=== PATIENT | male | born 1940 | race Caucasian/White ===

== ENCOUNTER 2024-10-15 07:10 | Observation (INO) | payer MEDICARE, BC ==
[2024-10-15] MEDS: Acetaminophen 500 MG Tab PO ONE (08:54)
[2024-10-15] MEDS: tiZANidine 4 MG Tab PO STA (08:54)
[2024-10-15] MEDS: Morphine 4 MG/ML VIAL IVPUSH ONE ×2 (10:32→16:13)
[2024-10-15] MEDS: Ondansetron 4 MG/2 ML SDV IVPUSH ONE ×3 (10:32→16:13)
[2024-10-15] MEDS: Sodium Chloride 0.9% 1,000 ML IV SCH ×3 (10:54→21:38)
[2024-10-15 14:27] LABS: BLOOD UREA NITROGEN,BUN 18 mg/dL (7-18); CALCIUM 8.8 mg/dL (8.6-10.2); CARBON DIOXIDE,CO2 25 mmol/L (21-32); CHLORIDE,CL 105 mmol/L (100-110); CREATININE 1.2 mg/dL (0.70-1.30); EST CRCL DRUG DOSING (CG) 51.79 mL/min; ESTIMATED GFR 60 mL/min (>60); GLUCOSE RANDOM 138 mg/dL (80-116); SODIUM,NA 143 mmol/L (135-145)
[2024-10-15 14:28] LABS: INR 0.97 (1.00-1.24); PROTHROMBIN TIME 10.1 sec (9.0-11.1)
[2024-10-15 14:30] LABS: BASOPHILS PERCENT AUTO 0.6 % (0.3-3.8); EOSINOPHILS ABSOLUTE AUTO 0.2 x10-3/uL (0.0-0.6); HEMATOCRIT 46.6 % (38.3-50.1); HEMOGLOBIN 15.7 g/dL (12.9-17.7); LYMPHOCYTES ABSOLUTE AUTO 2.6 x10-3/uL (0.5-4.5); LYMPHOCYTES PERCENT AUTO 43.5 % (15.8-45.3); MEAN CORPUSCULAR HEMOGLOBIN 30.3 pg (27.0-33.3); MEAN CORPUSCULAR HGB CONC 33.7 g/dL (28.7-35.3); MEAN PLATELET VOLUME 9.8 fL (6.7-11.0); MONOCYTES ABSOLUTE AUTO 0.5 x10-3/uL (0.0-1.2); MONOCYTES PERCENT AUTO 7.8 % (5.5-15.2); NEUTROPHILS ABSOLUTE AUTO 2.6 x10-3/uL (1.7-6.9); NEUTROPHILS PERCENT AUTO 45.1 % (40.3-71.8); PLATELET COUNT,PLT 146 x10(3)uL (117-477); RED BLOOD CELL COUNT 5.18 x10(6)uL (3.90-5.90); RED CELL DISTRIBUTION WIDTH 13.8 % (12.4-15.0); WHITE BLOOD CELL COUNT,WBC 5.9 x10-3/uL (3.2-10.1)
[2024-10-15 14:33] LABS: A/G RATIO 1.2; ALANINE AMINOTRANSFERASE,ALT 31 U/L (12-36); ALBUMIN 3.7 g/dL (3.2-4.6); ALKALINE PHOSPHATASE 86 IU/L (56-112); ASPARTATE AMNIOTRANSFERASE,AST 27 IU/L (5-25); BILIRUBIN TOTAL 0.8 mg/dL (0.1-1.3); PROTEIN TOTAL,TP 6.7 g/dL (6.0-8.0)
[2024-10-15] MEDS: Iopamidol 755 Mg/ML 100 ML Bottle IV SCH (15:16)
[2024-10-15] MEDS: levETIRAcetam 500 MG Tab PO STA (17:56)
[2024-10-15] MEDS: Acetaminophen/HYDROcodone 325-10 MG Tab PO PRN (21:16)
[2024-10-15] MEDS: levETIRAcetam 500 MG Tab PO SCH (21:16)
[2024-10-15] MEDS: Melatonin 3 MG Tab PO SCH (21:16)
[2024-10-15] MEDS: Sodium Chloride 0.9% 2,000 ML IV ONE (22:11)
[2024-10-15 22:37] LABS: BILIRUBIN,URINE NEGATIVE (NEGATIVE); GLUCOSE,URINE NORMAL (NORMAL); KETONES,URINE NEGATIVE (NEGATIVE); LEUKOCYTE ESTERASE,URINE NEGATIVE (NEGATIVE); NITRITE,URINE NEGATIVE (NEGATIVE); OCCULT BLOOD,URINE NEGATIVE (NEGATIVE); PROTEIN,URINE NEGATIVE (NEGATIVE); UROBILINOGEN,URINE NORMAL (NEGATIVE)
[2024-10-15 23:03] LABS: APPEARANCE,URINE CLEAR (CLEAR); COLOR,URINE YELLOW (YELLOW)
[2024-10-16] MEDS: Sodium Chloride 0.9% 1,000 ML IV SCH ×2 (01:50→14:50)
[2024-10-16] MEDS: tiZANidine 4 MG Tab PO PRN (05:29)
[2024-10-16 06:26] LABS: BASOPHILS PERCENT AUTO 0.3 % (0.3-3.8); EOSINOPHILS ABSOLUTE AUTO 0.1 x10-3/uL (0.0-0.6); EOSINOPHILS PERCENT AUTO 1.3 % (0.1-6.8); HEMATOCRIT 38.6 % (38.3-50.1); HEMOGLOBIN 12.7 g/dL (12.9-17.7); LYMPHOCYTES ABSOLUTE AUTO 1.1 x10-3/uL (0.5-4.5); LYMPHOCYTES PERCENT AUTO 16.6 % (15.8-45.3); MEAN CORPUSCULAR VOLUME 90.9 fL (80.8-98.7); MEAN PLATELET VOLUME 8.7 fL (6.7-11.0); MONOCYTES ABSOLUTE AUTO 0.7 x10-3/uL (0.0-1.2); MONOCYTES PERCENT AUTO 11.2 % (5.5-15.2); NEUTROPHILS ABSOLUTE AUTO 4.5 x10-3/uL (1.7-6.9); NEUTROPHILS PERCENT AUTO 70.6 % (40.3-71.8); PLATELET COUNT,PLT 113 x10(3)uL (117-477); RED BLOOD CELL COUNT 4.24 x10(6)uL (3.90-5.90); RED CELL DISTRIBUTION WIDTH 14.1 % (12.4-15.0); WHITE BLOOD CELL COUNT,WBC 6.3 x10-3/uL (3.2-10.1)
[2024-10-16 06:35] LABS: A/G RATIO 1.2; ALANINE AMINOTRANSFERASE,ALT 24 U/L (12-36); ALBUMIN 2.9 g/dL (3.2-4.6); ALKALINE PHOSPHATASE 58 IU/L (56-112); ASPARTATE AMNIOTRANSFERASE,AST 21 IU/L (5-25); BILIRUBIN TOTAL 0.9 mg/dL (0.1-1.3); BLOOD UREA NITROGEN,BUN 16 mg/dL (7-18); BUN/CREATININE RATIO 13.3 (9-20); CALCIUM 7.6 mg/dL (8.6-10.2); CARBON DIOXIDE,CO2 27 mmol/L (21-32); CHLORIDE,CL 110 mmol/L (100-110); CREATININE 1.2 mg/dL (0.70-1.30); EST CRCL DRUG DOSING (CG) 51.79 mL/min; ESTIMATED GFR 60 mL/min (>60); GLUCOSE RANDOM 104 mg/dL (80-116); POTASSIUM,K 4.5 mmol/L (3.5-5.3); PROTEIN TOTAL,TP 5.4 g/dL (6.0-8.0); SODIUM,NA 143 mmol/L (135-145)
[2024-10-16] MEDS: Ondansetron 4 MG Tab.DIS PO PRN ×2 (09:47→14:58)
[2024-10-16] MEDS ORDERED: Acetaminophen 325 MG Supp RECTAL PRN (10:01)
[2024-10-16] MEDS: Acetaminophen 325 MG Tab PO PRN (14:52)
[2024-10-17 06:21] LABS: BASOPHILS PERCENT AUTO 0.4 % (0.3-3.8); EOSINOPHILS ABSOLUTE AUTO 0.1 x10-3/uL (0.0-0.6); EOSINOPHILS PERCENT AUTO 2.2 % (0.1-6.8); HEMOGLOBIN 12.6 g/dL (12.9-17.7); LYMPHOCYTES ABSOLUTE AUTO 1.5 x10-3/uL (0.5-4.5); LYMPHOCYTES PERCENT AUTO 25.5 % (15.8-45.3); MEAN CORPUSCULAR HEMOGLOBIN 29.9 pg (27.0-33.3); MEAN CORPUSCULAR HGB CONC 33.1 g/dL (28.7-35.3); MEAN CORPUSCULAR VOLUME 90.5 fL (80.8-98.7); MEAN PLATELET VOLUME 8.7 fL (6.7-11.0); MONOCYTES ABSOLUTE AUTO 0.7 x10-3/uL (0.0-1.2); MONOCYTES PERCENT AUTO 11.2 % (5.5-15.2); NEUTROPHILS ABSOLUTE AUTO 3.6 x10-3/uL (1.7-6.9); NEUTROPHILS PERCENT AUTO 60.7 % (40.3-71.8); PLATELET COUNT,PLT 116 x10(3)uL (117-477); RED BLOOD CELL COUNT 4.19 x10(6)uL (3.90-5.90); RED CELL DISTRIBUTION WIDTH 13.8 % (12.4-15.0)
[2024-10-17 06:36] LABS: ALANINE AMINOTRANSFERASE,ALT 22 U/L (12-36); ALBUMIN 2.7 g/dL (3.2-4.6); ALKALINE PHOSPHATASE 61 IU/L (56-112); ASPARTATE AMNIOTRANSFERASE,AST 18 IU/L (5-25); BILIRUBIN TOTAL 0.6 mg/dL (0.1-1.3); BLOOD UREA NITROGEN,BUN 14 mg/dL (7-18); BUN/CREATININE RATIO 12.7 (9-20); CALCIUM 7.7 mg/dL (8.6-10.2); CARBON DIOXIDE,CO2 28 mmol/L (21-32); CHLORIDE,CL 108 mmol/L (100-110); CREATININE 1.1 mg/dL (0.70-1.30); EST CRCL DRUG DOSING (CG) 56.49 mL/min; ESTIMATED GFR 66 mL/min (>60); GLUCOSE RANDOM 116 mg/dL (80-116); POTASSIUM,K 4.2 mmol/L (3.5-5.3); PROTEIN TOTAL,TP 5.3 g/dL (6.0-8.0); SODIUM,NA 141 mmol/L (135-145)
[2024-10-17] MEDS ORDERED: Carboxymethylcellulose Sodium 0.5% Ophth Soln 15 ML Bottle EYEBOTH PRN (07:29)
== END 2024-10-17 16:45 | disposition home or self-care (01) ==
LOC: FB.ED 07:10 → FB.MS 17:35
PROVIDERS: ADMIT Family Medicine; ATTEND Internal Medicine
DX: S06.6X1A Traumatic subarachnoid hemorrhage with loss of consciousness of 30 minutes or less, initial encounter (principal); S16.1XXA Strain of muscle, fascia and tendon at neck level, initial encounter; D18.1 Lymphangioma, any site; W18.30XA Fall on same level, unspecified, initial encounter
CPT/HCPCS: 36415; 70450; 70496; 70498; 72125; 80053; 81003; 85025; 85610; 86140; 93005; 97161-GP; 97530-GP; A9270-GY; J2270; J2405; J7030; Q0162; Q9967